=== PATIENT | male | born 1945 | race African-American/Black ===

== ENCOUNTER 2018-12-15 19:44 | Inpatient (IN) | payer MEDICARE, MEDICAID ==
[~2018-12-15] VITALS: Ht 170.2 cm; Wt 102.1 kg
[2018-12-15] MEDS ORDERED: SODIUM CHLORIDE 0.9% 1,000 ML IV ONE (22:38)
[2018-12-16 00:29] LABS: BASOPHILS % 0.4 % (0.0-2.0); EOSINOPHILS % 2.9 % (0.0-5.0); HEMATOCRIT. 31.7 % (42.0-52.0); HEMOGLOBIN. 10.3 g/dL (14.0-18.0); MEAN CORPUSCULAR HEMOGLOBIN 28.5 pg (28.0-32.0); MEAN CORPUSCULAR VOLUME 87.4 fL (80.0-94.0); MEAN PLATELET VOLUME 8.2 fl (7.4-10.4); MONOCYTES % 11.3 % (2.0-8.0); NEUTROPHILS % 65.4 % (40.0-76.0); PLATELET 131 x1000/uL (130-400); RED BLOOD CELL COUNT 3.63 mill/uL (4.7-6.1); RED CELL DISTRIBUTION WIDTH 14.9 % (11.6-14.6)
[2018-12-16 00:36] LABS: CHLORIDE 104 mEq/L (98-107)
[2018-12-16 00:40] LABS: INR 1.1; PARTIAL THROMBOPLASTIN TIME 23.3 sec (23.4-31.0)
[2018-12-16] MEDS ORDERED: CEFTRIAXONE 1 G PREMIX 50 ML IV ONE (01:00)
[2018-12-16 01:10] LABS: CLARITY URINE CLOUDY (CLEAR); COLOR URINE ORANGE (YELLOW); KETONES URINE NEGATIVE (NEGATIVE); LEUKOCYTE ESTERASE URINE 2+ (NEGATIVE); NITRITE URINE NEGATIVE (NEGATIVE); OCCULT BLOOD URINE 3+ (NEGATIVE); PROTEIN URINE 3+ (NEGATIVE); SPECIFIC GRAVITY URINE 1.014 (1.005-1.030)
[2018-12-16] MEDS ORDERED: ASPIRIN 325MG EC TABLET PO ONE (01:15)
[2018-12-16] MEDS ORDERED: GUAIFENESIN 200MG/10ML SUGAR FREE UDC PO PRN (08:30)
[2018-12-16] MEDS ORDERED: HYDROCODONE/ACETAMINOPHEN 5/325MG TABLET PO PRN (08:30)
[2018-12-16] MEDS ORDERED: DIPHENHYDRAMINE 50MG/ML VIAL IV PRN (08:30)
[2018-12-16] MEDS ORDERED: VANCOMYCIN 1 G PREMIX 200 ML IV SCH (08:30)
[2018-12-16] MEDS ORDERED: IPRATROPIUM/ALBUTEROL 0.5-3(2.5)MG/3ML NEB HHN PRN (08:30)
[2018-12-16] MEDS ORDERED: DOCUSATE SODIUM 100MG CAPSULE PO PRN (08:30)
[2018-12-16] MEDS ORDERED: ACETAMINOPHEN 650MG SUPP PR PRN (08:30)
[2018-12-16] MEDS ORDERED: ACETAMINOPHEN 325MG TABLET PO PRN (08:30)
[2018-12-16] MEDS ORDERED: NA PHOS,M-B/NA PHOS,DI-BA ENEMA 118ML PR PRN (08:30)
[2018-12-16] MEDS ORDERED: CLONIDINE 0.1MG TABLET PO PRN (08:30)
[2018-12-16] MEDS ORDERED: MAGNESIUM/ALUMINUM HYDROXIDE/SIMETHICONE 30ML UDC PO PRN (08:30)
[2018-12-16] MEDS ORDERED: ACETAMINOPHEN 650MG/20.3ML UDC GT PRN (08:30)
[2018-12-16 10:14] LABS: BASOPHILS % 0.5 % (0.0-2.0); EOSINOPHILS % 3.2 % (0.0-5.0); HEMATOCRIT. 29.4 % (42.0-52.0); HEMOGLOBIN. 9.8 g/dL (14.0-18.0); LYMPHOCYTES % 21.1 % (20.0-50.0); MEAN CORPUSCULAR HEMOGLOBIN 29.1 pg (28.0-32.0); MEAN CORPUSCULAR VOLUME 87.3 fL (80.0-94.0); MEAN PLATELET VOLUME 8.2 fl (7.4-10.4); MONOCYTES % 10.9 % (2.0-8.0); NEUTROPHILS % 64.3 % (40.0-76.0); PLATELET 131 x1000/uL (130-400); RED BLOOD CELL COUNT 3.37 mill/uL (4.7-6.1); RED CELL DISTRIBUTION WIDTH 14.6 % (11.6-14.6)
[2018-12-16 10:20] LABS: CHLORIDE 104 mEq/L (98-107)
[2018-12-16 12:00] LABS: CREATINE KINASE > 51000 IU/L (39-308)
[2018-12-16 12:13] LABS: HEPATITIS B SURFACE ANTIGEN NEGATIVE
[2018-12-16 14:31] LABS: *AMPHETAMINES SCREEN URINE NEGATIVE (NEGATIVE); *BARBITURATES SCREEN URINE NEGATIVE (NEGATIVE); *BENZODIAZEPINES SCREEN URINE NEGATIVE (NEGATIVE); *COCAINE SCREEN URINE NEGATIVE (NEGATIVE); METHADONE URINE SCREEN NEGATIVE (NEGATIVE)
[2018-12-16 14:32] LABS: CANNABINOID URINE SCREEN NEGATIVE (NEGATIVE); OPIATES URINE SCREEN NEGATIVE (NEGATIVE); PHENCYCLIDINE URINE SCREEN NEGATIVE (NEGATIVE)
[2018-12-16 15:18] LABS: CREATINE KINASE MB FRACTION 50.8 ng/mL (0.5-3.6)
[2018-12-16] MEDS ORDERED: SODIUM CHLORIDE 0.9% 1,000 ML IV ONE (17:30)
[2018-12-16] MEDS: ENOXAPARIN 30MG/0.3ML SYR SUBCUT SCH (17:59)
[2018-12-16 18:28] VITALS: BP 94/58
[2018-12-16] MEDS ORDERED: VANCOMYCIN 1250MG in DEXTROSE 5% WATER 250ML IV NR (18:45)
[2018-12-16 20:00] VITALS: BP 100/70
[2018-12-16 23:32] LABS: CREATINE KINASE MB FRACTION 45.7 ng/mL (0.5-3.6)
[2018-12-17] VITALS: BP 108/60
[2018-12-17] MEDS ORDERED: CEFTRIAXONE 1 G PREMIX 50 ML IV SCH (01:00)
[2018-12-17] MEDS: SODIUM CHLORIDE 0.9% INJ 3ML FLUSH IVF SCH ×4 (01:47→09:25)
[2018-12-17 04:00] VITALS: BP 127/67
[2018-12-17] MEDS: SODIUM CHLORIDE 0.9% 1,000 ML IV SCH ×2 (04:46→18:22)
[2018-12-17 06:52] LABS: BASOPHILS % 0.4 % (0.0-2.0); EOSINOPHILS % 2.3 % (0.0-5.0); HEMATOCRIT. 28.5 % (42.0-52.0); HEMOGLOBIN. 9.5 g/dL (14.0-18.0); LYMPHOCYTES % 20.5 % (20.0-50.0); MEAN CORPUSCULAR HEMOGLOBIN 28.8 pg (28.0-32.0); MEAN CORPUSCULAR VOLUME 86.9 fL (80.0-94.0); MEAN PLATELET VOLUME 8.8 fl (7.4-10.4); MONOCYTES % 10.9 % (2.0-8.0); NEUTROPHILS % 65.9 % (40.0-76.0); PLATELET 123 x1000/uL (130-400); RED BLOOD CELL COUNT 3.28 mill/uL (4.7-6.1); RED CELL DISTRIBUTION WIDTH 14.8 % (11.6-14.6)
[2018-12-17 07:12] LABS: CHLORIDE 105 mEq/L (98-107)
[2018-12-17 07:26] LABS: PHOSPHORUS 6.2 mg/dL (2.5-4.9)
[2018-12-17 07:27] LABS: LDL CHOLESTEROL 46 mg/dL (5-100)
[2018-12-17 07:29] LABS: HDL CHOLESTEROL 32 mg/dL (40-59)
[2018-12-17 08:00] VITALS: BP 127/89
[2018-12-17 12:00] VITALS: BP 106/99
[2018-12-17] MEDS ORDERED: DIPHENHYDRAMINE 25MG CAPSULE PO PRN (12:45)
[2018-12-17] MEDS: ONDANSETRON HCL 4MG/2ML INJ IV PRN (15:12)
[2018-12-17 16:00] VITALS: BP 118/82
[2018-12-17 18:08] LABS: CREATINE KINASE 32631 IU/L (39-308)
[2018-12-17] MEDS: GABAPENTIN 100MG CAPSULE PO SCH ×2 (18:22→21:37)
[2018-12-17] MEDS: ENOXAPARIN 30MG/0.3ML SYR SUBCUT SCH (18:22)
[2018-12-17] MEDS: ASPIRIN 325MG TABLET PO SCH (18:22)
[2018-12-17 20:00] VITALS: BP 96/59
[2018-12-17] MEDS ORDERED: FLUTICASONE PROPIONATE 50MCG/SPRAY BOTTLE BOTHNSTRLS SCH (21:00)
[2018-12-18] VITALS: BP 98/55
[2018-12-18] MEDS: CEFTRIAXONE 1 G PREMIX 50 ML IV SCH (00:08)
[2018-12-18 04:00] VITALS: BP 100/68
[2018-12-18] MEDS: SODIUM CHLORIDE 0.9% 1,000 ML IV SCH ×2 (05:02→20:00)
[2018-12-18] MEDS: GABAPENTIN 100MG CAPSULE PO SCH (05:02)
[2018-12-18] MEDS: SODIUM CHLORIDE 0.9% INJ 3ML FLUSH IVF SCH ×3 (06:00→21:05)
[2018-12-18 07:05] LABS: BASOPHILS % 0.4 % (0.0-2.0); EOSINOPHILS % 2.1 % (0.0-5.0); HEMATOCRIT. 27.8 % (42.0-52.0); HEMOGLOBIN. 9.3 g/dL (14.0-18.0); LYMPHOCYTES % 20.4 % (20.0-50.0); MEAN CORPUSCULAR HEMOGLOBIN 28.8 pg (28.0-32.0); MEAN CORPUSCULAR VOLUME 86.7 fL (80.0-94.0); MEAN PLATELET VOLUME 8.5 fl (7.4-10.4); MONOCYTES % 10.2 % (2.0-8.0); NEUTROPHILS % 66.9 % (40.0-76.0); PLATELET 121 x1000/uL (130-400); RED BLOOD CELL COUNT 3.21 mill/uL (4.7-6.1); RED CELL DISTRIBUTION WIDTH 14.6 % (11.6-14.6)
[2018-12-18 08:55] VITALS: BP 98/58
[2018-12-18] MEDS: ASPIRIN 325MG TABLET PO SCH (09:39)
[2018-12-18 09:52] LABS: CHLORIDE 105 mEq/L (98-107)
[2018-12-18] MEDS ORDERED: VANCOMYCIN 1500MG in DEXTROSE 5% WATER 250ML IV SCH (12:00)
[2018-12-18 12:38] VITALS: BP 97/54
[2018-12-18] MEDS ORDERED: HYDRALAZINE 20MG/ML VIAL IV PRN (14:15)
[2018-12-18 14:17] LABS: HIV SCREEN 4G Non Reactive (Non Reactive)
[2018-12-18 14:51] LABS: BG BASE EXCESS -1.4 mmol/L (-2.0-2.0); BG CARBOXYHEMOGLOBIN 0.3 % (0.5-1.5); BG DEOXYHEMOGLOBIN 4.2 % (0.0-5.0); BG FRACTION INSPIRED OXYGEN 21; BG HCO3 ACT 22.7 mmol/L (22.0-26.0); BG METHEMOGLOBIN 0.3 % (0.0-1.5); BG OXYGEN SATURATION 95.8 % (92.0-98.5); BG OXYHEMOGLOBIN 95.2 % (94.0-97.0); BG PCO2 35.4 mmHg (35.0-45.0); BG PH 7.424 (7.350-7.450); BG PO2 87.9 mmHg (75.0-100.0); BG SAMPLE SITE RIGHT RADIAL; BG TOTAL HEMOGLOBIN 10.5 g/dL (12.0-18.0); BG VENT MODE ROOM AIR
[2018-12-18] MEDS: CLOPIDOGREL 75MG TABLET PO SCH (15:30)
[2018-12-18 16:30] VITALS: BP 99/43
[2018-12-18] MEDS: ENOXAPARIN 40MG/0.4ML SYR SUBCUT SCH (17:44)
[2018-12-18 20:00] VITALS: BP 97/56
[2018-12-18] MEDS: EPOETIN ALFA 4000UNITS/ML VIAL SUBCUT SCH (21:05)
[2018-12-19] VITALS (18 sets, daily range): BP systolic 92–127; BP diastolic 50–74
[2018-12-19] MEDS: CEFTRIAXONE 1 G PREMIX 50 ML IV SCH (01:38)
[2018-12-19] MEDS: SODIUM CHLORIDE 0.9% INJ 3ML FLUSH IVF SCH ×3 (06:09→22:25)
[2018-12-19] MEDS ORDERED: SODIUM BICARBONATE 4% (2.4MEQ) 5ML VIAL IV ONE (07:37)
[2018-12-19] MEDS ORDERED: LIDOCAINE HCL 1% 20ML VIAL (Pyxis) INJ ONE (07:38)
[2018-12-19 07:51] LABS: BASOPHILS % 0.4 % (0.0-2.0); EOSINOPHILS % 2.9 % (0.0-5.0); HEMOGLOBIN. 8.6 g/dL (14.0-18.0); LYMPHOCYTES % 23.7 % (20.0-50.0); MEAN CORPUSCULAR HEMOGLOBIN 28.7 pg (28.0-32.0); MEAN CORPUSCULAR VOLUME 86.8 fL (80.0-94.0); MEAN PLATELET VOLUME 8.7 fl (7.4-10.4); PLATELET 106 x1000/uL (130-400); RED CELL DISTRIBUTION WIDTH 14.6 % (11.6-14.6)
[2018-12-19] MEDS: CLOPIDOGREL 75MG TABLET PO SCH (09:18)
[2018-12-19] MEDS: ASPIRIN 325MG TABLET PO SCH (09:18)
[2018-12-19] MEDS: SODIUM CHLORIDE 0.9% 1,000 ML IV SCH ×2 (09:19→22:25)
[2018-12-19 10:27] LABS: PHOSPHORUS 3.6 mg/dL (2.5-4.9)
[2018-12-19 10:34] LABS: CREATINE KINASE MB FRACTION 38.8 ng/mL (0.5-3.6)
[2018-12-19] MEDS ORDERED: FENTANYL CITRATE/PF 50MCG/ML 2ML VIAL ONE (13:17)
[2018-12-19] MEDS ORDERED: FENTANYL CITRATE/PF 50MCG/ML 2ML VIAL IV ONE (14:00)
[2018-12-19 16:48] LABS: HEPATITIS A AB IGM NEGATIVE (NEGATIVE)
[2018-12-19] MEDS: ENOXAPARIN 40MG/0.4ML SYR SUBCUT SCH (17:22)
[2018-12-19 17:26] LABS: CREATINE KINASE 22603 IU/L (39-308)
[2018-12-20 00:12] VITALS: BP 113/65
[2018-12-20] MEDS: CEFTRIAXONE 1 G PREMIX 50 ML IV SCH (00:40)
[2018-12-20 04:00] VITALS: BP 101/63
[2018-12-20] MEDS: SODIUM CHLORIDE 0.9% INJ 3ML FLUSH IVF SCH ×3 (05:44→21:34)
[2018-12-20 05:50] LABS: CHLORIDE 106 mEq/L (98-107)
[2018-12-20 05:57] LABS: PHOSPHORUS 5.6 mg/dL (2.5-4.9)
[2018-12-20 06:03] LABS: CREATINE KINASE MB FRACTION 35.2 ng/mL (0.5-3.6)
[2018-12-20 06:16] LABS: BASOPHILS % 0.4 % (0.0-2.0); EOSINOPHILS % 3.6 % (0.0-5.0); HEMATOCRIT. 25.8 % (42.0-52.0); HEMOGLOBIN. 8.5 g/dL (14.0-18.0); LYMPHOCYTES % 20.5 % (20.0-50.0); MEAN CORPUSCULAR HEMOGLOBIN 28.7 pg (28.0-32.0); MEAN PLATELET VOLUME 8.7 fl (7.4-10.4); MONOCYTES % 9.5 % (2.0-8.0); PLATELET 109 x1000/uL (130-400); RED BLOOD CELL COUNT 2.97 mill/uL (4.7-6.1); RED CELL DISTRIBUTION WIDTH 14.6 % (11.6-14.6)
[2018-12-20 08:00] VITALS: BP 137/100
[2018-12-20 09:22] LABS: CREATINE KINASE 21438 IU/L (39-308)
[2018-12-20] MEDS: ASPIRIN 325MG TABLET PO SCH (09:23)
[2018-12-20] MEDS: CLOPIDOGREL 75MG TABLET PO SCH (09:23)
[2018-12-20] MEDS: ONDANSETRON HCL 4MG/2ML INJ IV PRN (11:31)
[2018-12-20 12:00] VITALS: BP 126/66
[2018-12-20] MEDS: SODIUM CHLORIDE 0.9% 1,000 ML IV SCH (12:09)
[2018-12-20] MEDS: VANCOMYCIN 1500MG in DEXTROSE 5% WATER 250ML IV NR ×2 (12:22→13:22)
[2018-12-20 16:00] VITALS: BP 100/47
[2018-12-20 17:44] LABS: CREATINE KINASE MB FRACTION 30.5 ng/mL (0.5-3.6)
[2018-12-20] MEDS: ENOXAPARIN 40MG/0.4ML SYR SUBCUT SCH (17:48)
[2018-12-20] MEDS ORDERED: ASPI-1393 PO (19:42)
[2018-12-20] MEDS ORDERED: OMEP20CA5 PO (19:42)
[2018-12-20] MEDS ORDERED: ROSU40TA PO (19:42)
[2018-12-20] MEDS ORDERED: CARV25TA47 PO (19:42)
[2018-12-20] MEDS ORDERED: LISI2.5T47 PO (19:42)
[2018-12-20] MEDS ORDERED: TICA90TA PO (19:42)
[2018-12-20] MEDS: EPOETIN ALFA 4000UNITS/ML VIAL SUBCUT SCH (21:34)
[2018-12-21] VITALS (7 sets, daily range): BP systolic 100–121; BP diastolic 51–68
[2018-12-21] MEDS: CEFTRIAXONE 1 G PREMIX 50 ML IV SCH (00:51)
[2018-12-21] MEDS: SODIUM CHLORIDE 0.9% 1,000 ML IV SCH ×2 (00:51→22:15)
[2018-12-21] MEDS: SODIUM CHLORIDE 0.9% INJ 3ML FLUSH IVF SCH ×3 (05:12→22:15)
[2018-12-21 06:24] LABS: BASOPHILS % 0.3 % (0.0-2.0); EOSINOPHILS % 4.1 % (0.0-5.0); HEMATOCRIT. 25.2 % (42.0-52.0); HEMOGLOBIN. 8.4 g/dL (14.0-18.0); LYMPHOCYTES % 23.6 % (20.0-50.0); MEAN CORPUSCULAR HEMOGLOBIN 29.1 pg (28.0-32.0); MEAN CORPUSCULAR VOLUME 87.6 fL (80.0-94.0); MEAN PLATELET VOLUME 8.8 fl (7.4-10.4); MONOCYTES % 13.2 % (2.0-8.0); NEUTROPHILS % 58.8 % (40.0-76.0); PLATELET 87 x1000/uL (130-400); RED BLOOD CELL COUNT 2.88 mill/uL (4.7-6.1); RED CELL DISTRIBUTION WIDTH 14.7 % (11.6-14.6)
[2018-12-21 09:58] LABS: CHLORIDE 108 mEq/L (98-107)
[2018-12-21 10:17] LABS: PHOSPHORUS 3.9 mg/dL (2.5-4.9)
[2018-12-21 10:21] LABS: CREATINE KINASE MB FRACTION 27.3 ng/mL (0.5-3.6)
[2018-12-21] MEDS: CLOPIDOGREL 75MG TABLET PO SCH (11:09)
[2018-12-21] MEDS: ASPIRIN 325MG TABLET PO SCH (11:09)
[2018-12-21 11:17] LABS: CREATINE KINASE 11489 IU/L (39-308)
[2018-12-21 13:14] LABS: HEPATITIS B SURFACE ANTIGEN NEGATIVE
[2018-12-21] MEDS: ENOXAPARIN 40MG/0.4ML SYR SUBCUT SCH (18:00)
[2018-12-22] VITALS (7 sets, daily range): BP systolic 105–122; BP diastolic 57–68
[2018-12-22] MEDS: SODIUM CHLORIDE 0.9% 1,000 ML IV SCH ×2 (03:18→17:37)
[2018-12-22] MEDS: ONDANSETRON HCL 4MG/2ML INJ IV PRN (05:48)
[2018-12-22] MEDS: SODIUM CHLORIDE 0.9% INJ 3ML FLUSH IVF SCH ×3 (05:48→21:55)
[2018-12-22 06:08] LABS: BASOPHILS % 0.3 % (0.0-2.0); CHLORIDE 109 mEq/L (98-107); EOSINOPHILS % 4.7 % (0.0-5.0); LYMPHOCYTES % 22.3 % (20.0-50.0); MEAN CORPUSCULAR HEMOGLOBIN 29.2 pg (28.0-32.0); MEAN CORPUSCULAR VOLUME 87.4 fL (80.0-94.0); MEAN PLATELET VOLUME 8.4 fl (7.4-10.4); MONOCYTES % 12.5 % (2.0-8.0); NEUTROPHILS % 60.2 % (40.0-76.0); PLATELET 99 x1000/uL (130-400); RED BLOOD CELL COUNT 3.09 mill/uL (4.7-6.1); RED CELL DISTRIBUTION WIDTH 14.9 % (11.6-14.6)
[2018-12-22 06:24] LABS: CREATINE KINASE MB FRACTION 32.6 ng/mL (0.5-3.6)
[2018-12-22 06:49] LABS: CREATINE KINASE 9356 IU/L (39-308)
[2018-12-22] MEDS: ASPIRIN 81MG EC TABLET PO SCH ×2 (08:13→17:36)
[2018-12-22] MEDS: CLOPIDOGREL 75MG TABLET PO SCH (08:13)
[2018-12-22] MEDS: ENOXAPARIN 40MG/0.4ML SYR SUBCUT SCH (17:47)
[2018-12-22] MEDS: EPOETIN ALFA 4000UNITS/ML VIAL SUBCUT SCH (21:55)
[2018-12-23] VITALS: BP 110/61
[2018-12-23 04:00] VITALS: BP 126/63
[2018-12-23] MEDS: SODIUM CHLORIDE 0.9% 1,000 ML IV SCH (05:30)
[2018-12-23] MEDS: SODIUM CHLORIDE 0.9% INJ 3ML FLUSH IVF SCH ×3 (05:30→21:20)
[2018-12-23 06:55] LABS: BASOPHILS % 0.4 % (0.0-2.0); EOSINOPHILS % 3.1 % (0.0-5.0); HEMATOCRIT. 25.3 % (42.0-52.0); HEMOGLOBIN. 8.2 g/dL (14.0-18.0); LYMPHOCYTES % 21.3 % (20.0-50.0); MEAN CORPUSCULAR HEMOGLOBIN 28.8 pg (28.0-32.0); MEAN CORPUSCULAR VOLUME 88.5 fL (80.0-94.0); MONOCYTES % 12.4 % (2.0-8.0); NEUTROPHILS % 62.8 % (40.0-76.0); PLATELET 105 x1000/uL (130-400); RED BLOOD CELL COUNT 2.85 mill/uL (4.7-6.1); RED CELL DISTRIBUTION WIDTH 15.1 % (11.6-14.6)
[2018-12-23 08:00] VITALS: BP 120/74
[2018-12-23] MEDS: CLOPIDOGREL 75MG TABLET PO SCH (09:21)
[2018-12-23] MEDS: ASPIRIN 81MG EC TABLET PO SCH ×2 (09:21→17:40)
[2018-12-23 12:00] VITALS: BP 118/69
[2018-12-23] MEDS ORDERED: SODIUM CHLORIDE 0.45% 1,000 ML IV SCH (13:45)
[2018-12-23 16:00] VITALS: BP 120/85
[2018-12-23] MEDS: ENOXAPARIN 40MG/0.4ML SYR SUBCUT SCH (17:40)
[2018-12-23 20:00] VITALS: BP 139/89
[2018-12-23] MEDS: CARVEDILOL 3.125 MG TABLET PO SCH (21:20)
[2018-12-24] VITALS: BP 132/85
[2018-12-24 04:00] VITALS: BP 129/80
[2018-12-24] MEDS: SODIUM CHLORIDE 0.9% INJ 3ML FLUSH IVF SCH ×2 (06:46→14:35)
[2018-12-24 06:51] LABS: BASOPHILS % 0.4 % (0.0-2.0); EOSINOPHILS % 3.1 % (0.0-5.0); HEMOGLOBIN. 8.4 g/dL (14.0-18.0); MEAN CORPUSCULAR HEMOGLOBIN 28.8 pg (28.0-32.0); MEAN CORPUSCULAR VOLUME 88.6 fL (80.0-94.0); MEAN PLATELET VOLUME 8.4 fl (7.4-10.4); MONOCYTES % 12.1 % (2.0-8.0); NEUTROPHILS % 61.4 % (40.0-76.0); PLATELET 117 x1000/uL (130-400); RED BLOOD CELL COUNT 2.93 mill/uL (4.7-6.1); RED CELL DISTRIBUTION WIDTH 15.3 % (11.6-14.6)
[2018-12-24 07:50] LABS: PHOSPHORUS 4.6 mg/dL (2.5-4.9)
[2018-12-24 08:00] VITALS: BP 114/63
[2018-12-24] MEDS: CLOPIDOGREL 75MG TABLET PO SCH (08:37)
[2018-12-24] MEDS: ASPIRIN 81MG EC TABLET PO SCH ×2 (08:37→17:22)
[2018-12-24] MEDS: CARVEDILOL 3.125 MG TABLET PO SCH (08:39)
[2018-12-24 12:00] VITALS: BP 126/61
[2018-12-24] MEDS: ENOXAPARIN 40MG/0.4ML SYR SUBCUT SCH (18:00)
== END 2018-12-24 18:48 | disposition home health service (06) | DRG 190 ==
LOC: ER 19:44 → EDBD 19:44 → 7WST 12-16 01:33 → ENRESERV 12-16 15:54
PROVIDERS: ADMIT Internal Medicine; ATTEND Internal Medicine
PROC: 02HV33Z Insertion of Infusion Device into Superior Vena Cava, Percutaneous Approach (ICD-10-PCS; principal; 2018-12-17)
PROC: B5181ZA Fluoroscopy of Superior Vena Cava using Low Osmolar Contrast, Guidance (ICD-10-PCS; 2018-12-17)
PROC: B548ZZA Ultrasonography of Superior Vena Cava, Guidance (ICD-10-PCS; 2018-12-17)
PROC: 5A1D70Z Performance of Urinary Filtration, Intermittent, Less than 6 Hours Per Day (ICD-10-PCS; 2018-12-17)
PROC: 06PY33Z Removal of Infusion Device from Lower Vein, Percutaneous Approach (ICD-10-PCS; 2018-12-19)
PROC: 02HV33Z Insertion of Infusion Device into Superior Vena Cava, Percutaneous Approach (ICD-10-PCS; 2018-12-19)
PROC: 0JH63XZ Insertion of Tunneled Vascular Access Device into Chest Subcutaneous Tissue and Fascia, Percutaneous Approach (ICD-10-PCS; 2018-12-19)
PROC: B5181ZA Fluoroscopy of Superior Vena Cava using Low Osmolar Contrast, Guidance (ICD-10-PCS; 2018-12-19)
PROC: 5A1D70Z Performance of Urinary Filtration, Intermittent, Less than 6 Hours Per Day (ICD-10-PCS; 2018-12-19)
PROC: 5A1D70Z Performance of Urinary Filtration, Intermittent, Less than 6 Hours Per Day (ICD-10-PCS; 2018-12-22)
PROC: 5A1D70Z Performance of Urinary Filtration, Intermittent, Less than 6 Hours Per Day (ICD-10-PCS; 2018-12-24)
DX: I21.4 Non-ST elevation (NSTEMI) myocardial infarction (principal); E43 Unspecified severe protein-calorie malnutrition; N17.9 Acute kidney failure, unspecified; I47.2 Ventricular tachycardia; I13.2 Hypertensive heart and chronic kidney disease with heart failure and with stage 5 chronic kidney disease, or end stage renal disease; I50.33 Acute on chronic diastolic (congestive) heart failure; D68.59 Other primary thrombophilia; D69.6 Thrombocytopenia, unspecified; E83.39 Other disorders of phosphorus metabolism; N18.6 End stage renal disease; I95.9 Hypotension, unspecified; M62.82 Rhabdomyolysis; D63.8 Anemia in other chronic diseases classified elsewhere; F20.9 Schizophrenia, unspecified; I25.10 Atherosclerotic heart disease of native coronary artery without angina pectoris; N39.0 Urinary tract infection, site not specified; R74.0 Nonspecific elevation of levels of transaminase and lactic acid dehydrogenase [LDH]; R26.9 Unspecified abnormalities of gait and mobility; R29.6 Repeated falls; I25.2 Old myocardial infarction; Z95.5 Presence of coronary angioplasty implant and graft; Z99.2 Dependence on renal dialysis; Z79.02 Long term (current) use of antithrombotics/antiplatelets; Z79.82 Long term (current) use of aspirin; Z79.899 Other long term (current) drug therapy; Z82.49 Family history of ischemic heart disease and other diseases of the circulatory system; Z68.35 Body mass index [BMI] 35.0-35.9, adult
CPT/HCPCS: 36415; 36558; 36589; 36600; 71045; 72131; 76700; 76770; 77001; 80048; 80061; 80076; 80202; 80305; 81003; 82248; 82375; 82550; 82553; 82805; 83036; 83735; 83880; 84100; 84153; 84484; 86705; 86706; 86709; 86803; 86850; 86900; 87340; 87389; 93005; 93306; 93970; 96361; 96365; 97110; 97162; 97530; 99152; 99153; 99285; C1750; C1752; C1769; J0696; J0885; J1642; J1650; J2405; J3010; J3370; J3490; J7030; J7060; G0103; G0500

== ENCOUNTER 2019-02-23 20:51 | Inpatient (IN) | payer MEDICARE, MEDICAID ==
[~2019-02-23] VITALS: Ht 172.7 cm; Wt 95.3 kg
[~2019-02-23 20:51] MED LIST: ASPI-1393 PO; OMEP20CA5 PO; TICA90TA PO
[2019-02-23 21:35] LABS: BASOPHILS % 0.8 % (0.0-2.0); CHLORIDE 100 mEq/L (98-107); EOSINOPHILS % 6.3 % (0.0-5.0); HEMATOCRIT. 40.4 % (42.0-52.0); HEMOGLOBIN. 13.3 g/dL (14.0-18.0); LYMPHOCYTES % 30.1 % (20.0-50.0); MEAN CORPUSCULAR HEMOGLOBIN 31.4 pg (28.0-32.0); MEAN CORPUSCULAR VOLUME 95.3 fL (80.0-94.0); MEAN PLATELET VOLUME 7.1 fl (7.4-10.4); MONOCYTES % 7.6 % (2.0-8.0); NEUTROPHILS % 55.2 % (40.0-76.0); PLATELET 202 x1000/uL (130-400); RED BLOOD CELL COUNT 4.24 mill/uL (4.7-6.1); RED CELL DISTRIBUTION WIDTH 18.2 % (11.6-14.6)
[2019-02-23] MEDS ORDERED: ACETAMINOPHEN WITH CODEINE 300/30MG TABLET PO ONE (23:30)
[2019-02-24 08:14] LABS: CLARITY URINE CLEAR (CLEAR); COLOR URINE YELLOW (YELLOW); KETONES URINE TRACE (NEGATIVE); LEUKOCYTE ESTERASE URINE NEGATIVE (NEGATIVE); NITRITE URINE NEGATIVE (NEGATIVE); OCCULT BLOOD URINE NEGATIVE (NEGATIVE); PH URINE 5.5 (4.5-8.0); PROTEIN URINE 1+ (NEGATIVE); SPECIFIC GRAVITY URINE 1.019 (1.005-1.030)
[2019-02-24 08:30] VITALS: BP 127/86
[2019-02-24 08:45] VITALS: BP 127/86
[2019-02-24] MEDS ORDERED: ONDANSETRON HCL 4MG/2ML INJ IV PRN (08:45)
[2019-02-24] MEDS: ASPIRIN 81MG TABLET PO SCH (10:11)
[2019-02-24] MEDS: ACETAMINOPHEN 325MG TABLET PO PRN ×2 (10:24→21:18)
[2019-02-24] MEDS: CLOPIDOGREL 75MG TABLET PO SCH (11:57)
[2019-02-24] MEDS: ENOXAPARIN 30MG/0.3ML SYR SUBCUT SCH (11:57)
[2019-02-24 16:00] VITALS: BP 100/70
[2019-02-24 20:00] VITALS: BP 103/68
[2019-02-24] MEDS: ATORVASTATIN CALCIUM 40MG TABLET PO SCH (21:18)
[2019-02-25] VITALS: BP 105/66
[2019-02-25 04:00] VITALS: BP 106/75
[2019-02-25 07:19] LABS: BASOPHILS % 0.6 % (0.0-2.0); EOSINOPHILS % 7.4 % (0.0-5.0); HEMATOCRIT. 36.6 % (42.0-52.0); LYMPHOCYTES % 51.1 % (20.0-50.0); MEAN CORPUSCULAR HEMOGLOBIN 30.7 pg (28.0-32.0); MEAN CORPUSCULAR VOLUME 94.1 fL (80.0-94.0); MEAN PLATELET VOLUME 7.2 fl (7.4-10.4); MONOCYTES % 9.8 % (2.0-8.0); NEUTROPHILS % 31.1 % (40.0-76.0); PLATELET 186 x1000/uL (130-400); RED BLOOD CELL COUNT 3.89 mill/uL (4.7-6.1); RED CELL DISTRIBUTION WIDTH 18.5 % (11.6-14.6)
[2019-02-25 07:56] LABS: PHOSPHORUS 4.5 mg/dL (2.5-4.9)
[2019-02-25 08:00] VITALS: BP 133/81
[2019-02-25] MEDS: ASPIRIN 81MG TABLET PO SCH (08:11)
[2019-02-25] MEDS: CLOPIDOGREL 75MG TABLET PO SCH (08:11)
[2019-02-25] MEDS: ENOXAPARIN 30MG/0.3ML SYR SUBCUT SCH (08:11)
[2019-02-25] MEDS: ACETAMINOPHEN 325MG TABLET PO PRN ×2 (08:22→19:30)
[2019-02-25 12:00] VITALS: BP_SYST 121; BP_SYST 123; BP_SYST 126; BP_DIAS 76; BP_DIAS 81
[2019-02-25] MEDS ORDERED: MORPHINE SULFATE 2 MG/ML CPJ (NOT FOR IM USE) IV PRN (14:15)
[2019-02-25] MEDS ORDERED: IPRATROPIUM/ALBUTEROL 0.5-3(2.5)MG/3ML NEB HHN PRN (14:15)
[2019-02-25] MEDS ORDERED: DIPHENHYDRAMINE 50MG/ML VIAL IV PRN (14:15)
[2019-02-25] MEDS ORDERED: LORAZEPAM 2MG/ML CPJ IV PRN (14:15)
[2019-02-25] MEDS ORDERED: HYDRALAZINE 20MG/ML VIAL IV PRN (14:15)
[2019-02-25] MEDS ORDERED: ATOR10TA MT (15:24)
[2019-02-25 16:00] VITALS: BP 109/69
[2019-02-25] MEDS: CEFTRIAXONE 1 G PREMIX 50 ML IV SCH ×2 (17:00→18:45)
[2019-02-25 20:00] VITALS: BP_SYST 109; BP_SYST 111; BP_SYST 121; BP_DIAS 64; BP_DIAS 75; BP_DIAS 81
[2019-02-25] MEDS: ATORVASTATIN CALCIUM 40MG TABLET PO SCH (20:56)
[2019-02-25] MEDS ORDERED: LACTULOSE 20G/30ML UDC PO PRN (21:00)
[2019-02-26] VITALS (7 sets, daily range): BP systolic 111–143; BP diastolic 65–98
[2019-02-26 07:33] LABS: BASOPHILS % 0.6 % (0.0-2.0); EOSINOPHILS % 6.9 % (0.0-5.0); HEMOGLOBIN. 12.4 g/dL (14.0-18.0); LYMPHOCYTES % 44.1 % (20.0-50.0); MEAN CORPUSCULAR HEMOGLOBIN 31.1 pg (28.0-32.0); MEAN CORPUSCULAR VOLUME 95.3 fL (80.0-94.0); MEAN PLATELET VOLUME 7.6 fl (7.4-10.4); MONOCYTES % 9.8 % (2.0-8.0); NEUTROPHILS % 38.6 % (40.0-76.0); PLATELET 183 x1000/uL (130-400); RED BLOOD CELL COUNT 3.98 mill/uL (4.7-6.1); RED CELL DISTRIBUTION WIDTH 17.5 % (11.6-14.6)
[2019-02-26 07:49] LABS: PHOSPHORUS 4.6 mg/dL (2.5-4.9)
[2019-02-26] MEDS: CLOPIDOGREL 75MG TABLET PO SCH (09:42)
[2019-02-26] MEDS: ASPIRIN 81MG TABLET PO SCH (09:42)
[2019-02-26] MEDS: ENOXAPARIN 30MG/0.3ML SYR SUBCUT SCH (09:43)
[2019-02-26] MEDS: ACETAMINOPHEN 325MG TABLET PO PRN ×2 (10:35→20:49)
[2019-02-26] MEDS ORDERED: HEPARIN SODIUM 1,000 UNIT/1ML VIAL IV NR (19:30)
[2019-02-26] MEDS: ATORVASTATIN CALCIUM 40MG TABLET PO SCH (20:48)
== END 2019-02-26 23:25 | disposition home or self-care (01) | DRG 48 ==
LOC: ER 21:19 → 8WST 02-24 00:04 → ENRESERV 02-24 07:18
PROVIDERS: ADMIT Internal Medicine; ATTEND Internal Medicine
DX: G90.8 Other disorders of autonomic nervous system (principal); E43 Unspecified severe protein-calorie malnutrition; D63.8 Anemia in other chronic diseases classified elsewhere; I13.11 Hypertensive heart and chronic kidney disease without heart failure, with stage 5 chronic kidney disease, or end stage renal disease; N18.6 End stage renal disease; D64.9 Anemia, unspecified; Z99.2 Dependence on renal dialysis; N39.0 Urinary tract infection, site not specified; F20.9 Schizophrenia, unspecified; F31.9 Bipolar disorder, unspecified; I25.10 Atherosclerotic heart disease of native coronary artery without angina pectoris; Z95.5 Presence of coronary angioplasty implant and graft; E78.5 Hyperlipidemia, unspecified; Z68.31 Body mass index [BMI] 31.0-31.9, adult; Z79.02 Long term (current) use of antithrombotics/antiplatelets; Z79.82 Long term (current) use of aspirin; Z82.49 Family history of ischemic heart disease and other diseases of the circulatory system
CPT/HCPCS: 36415; 71045; 80048; 81003; 82550; 83735; 84100; 84484; 93005; 93880; 97162; 99285; J0696; J1644; J1650